=== PATIENT | male | born 1970 | race Two or more races ===

== ENCOUNTER 2024-08-16 04:53 | Inpatient (IN) | payer BC, OTHER ==
[2024-08-16] VITALS (55 sets, daily range): BP systolic 79–155; BP diastolic 46–104; PULSE 82–142; RESP 18–44; TEMP 96–98.9; O2SAT 85–100
[~2024-08-16] VITALS: Ht 175.3 cm; Wt 72.0 kg
[2024-08-16] MEDS: FUROSEMIDE 40 MG/4 ML VIAL IV ONE (05:28)
[2024-08-16] MEDS: dilTIAZem HCL 50 MG/10 ML VIAL IV ONE (05:57)
[2024-08-16] MEDS: dilTIAZem 125mg/125ml BAG KIT 125 ML IV ONE (05:58)
[2024-08-16] MEDS: dilTIAZem 25 MG/5 ML VIAL IV ONE (05:58)
[2024-08-16] MEDS: dilTIAZem 125mg/125ml BAG KIT 125 ML IV SCH (05:58)
[2024-08-16] MEDS: NOREPINEPHRINE 8 MG/250ML KIT 250 ML IV ONE (06:29)
[2024-08-16 06:35] LABS: Base Excess -11.5 mmol/L (-2.0-3.0)
[2024-08-16] MEDS: FUROSEMIDE 20 MG/2 ML VIAL IV ONE ×2 (06:59→08:19)
[2024-08-16] MEDS: SODIUM BICARB 8.4% 50Meq/50ml SYR Vial IV ONE ×2 (06:59→16:32)
[2024-08-16 07:22] LABS: Basophils # (auto) 0 10 ^3/uL (0-0.2); Basophils % (auto) 0.1 % (0.0-2.0); Eosinophils # (auto) 0 10 ^3/uL (0-0.8); Eosinophils % (auto) 0.2 % (0.0-7.0); Hematocrit 46.7 % (41.0-53.0); Hemoglobin 15.4 g/dL (13.5-17.5); Lymphocytes # (auto) 2.3 10 ^3/uL (0.4-5.4); Lymphocytes % (auto) 14.9 % (10.0-50.0); Mean Corpuscular Hemoglobin 29.9 pg (28.0-32.0); Mean Corpuscular Hgb Conc. 33.1 g/dL (32.0-36.0); Mean Corpuscular Volume 90.4 fL (80.0-100.0); Monocytes # (auto) 1.5 10 ^3/uL (0-1.3); Monocytes % (auto) 9.8 % (0.0-12.0); Neutrophils # (auto) 11.4 10 ^3/uL (1.6-8.6); Nucleated Red Blood Cells % 0.2 %; Platelet Count (auto) 121 10^3/uL (140-450); Red Blood Cells 5.17 10^6/uL (4.5-5.90); Red Cell Distribution Width 16.4 % (11.8-14.3); White Blood Cell 15.3 10^3/uL (4.4-10.8)
[2024-08-16 07:28] LABS: Urine Bacteria None Seen /hpf (None Seen)
[2024-08-16 07:28] LABS: Chloride 99 mmol/L (98-107); Sodium 128 mmol/L (136-145)
[2024-08-16 07:29] LABS: Anion Gap 12 (5-15); Calcium 8.6 mg/dL (8.7-10.4); Carbon Dioxide 17 mmol/L (20-31)
[2024-08-16 07:34] LABS: Blood Urea Nitrogen 16 mg/dL (9-23); Glucose 107 mg/dL (74-106)
[2024-08-16 07:37] LABS: Lactic Acid w/Reflex 6.9 mmol/L (0.4-2.0)
[2024-08-16 07:39] LABS: Potassium 5.6 mmol/L (3.5-5.1)
[2024-08-16 07:52] LABS: Urine Blood 2+ /uL (Negative); Urine Clarity Turbid (Clear); Urine Color Dark-Yellow (Yellow); Urine Protein, UAD 2+ (Negative); Urine Specific Gravity 1.018 (1.001-1.035); Urine Urobilinogen 2 mg/dL (Negative); Urine WBC 7 /hpf (0 - 3); Urine pH 5.5 (5.0-9.0)
[2024-08-16] MEDS: CALCIUM GLUC 1,000mg/50ml-NS 50 ML IV ONE (08:15)
[2024-08-16] MEDS: SODIUM ZIRCONIUM CYCL 10 GM PAK PO ONE ×3 (08:17→20:34)
[2024-08-16] MEDS: InsuLIN REG 1unit/0.01ml Soln (100units/ml) IV ONE (08:20)
[2024-08-16] MEDS: SODIUM BICARB 8.4% 50Meq/50ml SYR INJ IV ONE (08:21)
[2024-08-16] MEDS: DEXTROSE (50%) 50ML SYRG IV ONE (08:21)
[2024-08-16] MEDS: ALBUTEROL SULF 2.5 MG/0.5ML(0.5%) NEB SOLN NEB ONE (08:25)
[2024-08-16] MEDS: cefTRIAXone 1GM/50ML D5W 50 ML IV ONE (08:39)
[2024-08-16] MEDS: NOREPINEPHRINE 8 MG/250ML KIT 250 ML IV SCH (08:39)
[2024-08-16] MEDS: AZITHROMYCIN 500MG/ 250ML 250 ML IV ONE (09:10)
[2024-08-16] MEDS ORDERED: VANCOMYCIN PER PHARMACY 0 MG IV SCH (09:15)
[2024-08-16] MEDS ORDERED: PIPERACILLIN-TAZOB 3.375GM 100 ML IV SCH (09:15)
[2024-08-16 09:32] LABS: COVID19 ANTIGEN SOFIA FIA NEGATIVE (NEGATIVE)
[2024-08-16 09:33] LABS: Chloride 99 mmol/L (98-107); Potassium 5.5 mmol/L (3.5-5.1); Sodium 129 mmol/L (136-145)
[2024-08-16 09:33] LABS: Rapid Influenza A Negative (Negative); Rapid Influenza B Negative (Negative)
[2024-08-16 09:34] LABS: Anion Gap 16 (5-15); Calcium 8.4 mg/dL (8.7-10.4); Carbon Dioxide 14 mmol/L (20-31)
[2024-08-16 09:39] LABS: Blood Urea Nitrogen 15 mg/dL (9-23); Glucose 62 mg/dL (74-106)
[2024-08-16] MEDS ORDERED: D5W/SOD CHLO 0.9% 1,000 ML IV ONE (10:00)
[2024-08-16] MEDS: IPRATROPIUM BROM 0.5 MG/2.5ML INH SOL NEB SCH (10:05)
[2024-08-16] MEDS: ALBUTEROL SULF 2.5 MG/0.5ML(0.5%) NEB SOLN NEB SCH (10:05)
[2024-08-16] MEDS ORDERED: ALBUTEROL SULF 2.5 MG/0.5ML(0.5%) NEB SOLN NEB PRN (10:15)
[2024-08-16] MEDS ORDERED: IPRATROPIUM BROM 0.5 MG/2.5ML INH SOL NEB PRN (10:15)
[2024-08-16] MEDS: IOHEXOL 300 MG/ML 100ML BOTTLE IJ ONE (10:28)
[2024-08-16] MEDS ORDERED: NITROGLYCERIN 0.4 MG SL TAB SL PRN (10:45)
[2024-08-16] MEDS ORDERED: HYDROmorphone HCL 2 MG/ML VL/or syr IV PRN (10:45)
[2024-08-16] MEDS ORDERED: MORPHINE SULFATE INJ 2 MG/ml SYRG IV PRN (10:45)
[2024-08-16] MEDS ORDERED: DOCUSATE SOD 100 MG CAP PO PRN (10:45)
[2024-08-16] MEDS ORDERED: ONDANSETRON HCL 4 MG/2 ML VIAL IV PRN (10:45)
[2024-08-16 10:57] LABS: Partial Thromboplastin Time 41.6 SEC (24.5-34.5); Prothrombin Time 39.8 sec (9.3-11.8)
[2024-08-16 10:59] LABS: INR 4.17 (0.9-1.15)
[2024-08-16] MEDS: FUROSEMIDE 40 MG/4 ML VIAL IV SCH (11:20)
[2024-08-16 12:14] LABS: Alkaline Phosphatase 238 U/L (46-116)
[2024-08-16 12:15] LABS: Alanine Aminotransferase 233 U/L (7-40); Albumin 3.1 g/dL (3.2-4.8); Aspartate Aminotransferase 305 U/L (13-40); Bilirubin, Total 9.9 mg/dL (0.2-1.0); Total Protein 7.5 g/dL (5.7-8.2)
[2024-08-16] MEDS: LIDOCAINE 1% (LOCAL ANESTH.) PF 5ml SDV ID ONE (13:49)
[2024-08-16] MEDS: SODIUM CHLOR 0.9% PF (SALINE LOCK) 10ML VIAL/SYR IV SCH ×2 (14:00→22:10)
[2024-08-16] MEDS: BUMETANIDE INJECTION 25 MG in GIVE UN-DILUTED 0 ML IV SCH (14:26)
[2024-08-16 16:05] LABS: Base Excess -11.8 mmol/L (-2.0-3.0)
[2024-08-16] MEDS: phytonadione 10 MG in SODIUM CHL 0.9% 50 ML IV ONE (16:07)
[2024-08-16 16:19] LABS: Lactic Acid w/Reflex 10.5 mmol/L (0.4-2.0)
[2024-08-16] MEDS: DOBUTamine 1000MCG/ML 250 ML IV SCH (16:31)
[2024-08-16] MEDS: SODIUM BICARB 50mEq/50ml Vial 150 ML in D5W 5% 1,000 ML IV ONE (16:48)
[2024-08-16 16:58] LABS: Triglycerides 168 mg/dL (< 150)
[2024-08-16 16:59] LABS: LDL Cholesterol 22 mg/dL (< 100); Magnesium 1.8 mg/dL (1.6-2.6)
[2024-08-16 17:00] LABS: Cholesterol < 50.0 mg/dL (< 200); HDL Cholesterol 6 mg/dL (40-59)
[2024-08-16] MEDS: VANCOMYCIN 1.5GM/300ML 300 ML IV ONE (17:18)
[2024-08-16] MEDS: AMIODARONE BOLUS KIT 100 ML IV ONE (18:34)
[2024-08-16] MEDS: AMIODARONE 450mg/250ml AE 250 ML IV SCH (18:58)
[2024-08-16] MEDS: NOREPINEPHRINE BITARTRATE 32 MG in SODIUM CHL 0.9% 218 ML IV SCH (20:34)
[2024-08-16] MEDS: PIPERACILLIN-TAZOB 3.375GM 100 ML IV SCH (20:34)
[2024-08-16] MEDS: SODIUM ZIRCONIUM CYCL 10 GM PAK PO SCH (22:00)
[2024-08-17] VITALS (103 sets, daily range): BP systolic 84–128; BP diastolic 47–86; PULSE 95–143; RESP 14–37; TEMP 96.4–99; O2SAT 90–98
[2024-08-17] MEDS: AMIODARONE 450mg/250ml AE 250 ML IV SCH (00:24)
[2024-08-17 00:36] LABS: Prothrombin Time 50.5 sec (9.3-11.8)
[2024-08-17 00:38] LABS: INR 5.4 (0.9-1.15)
[2024-08-17 04:21] LABS: Basophils # (auto) 0 10 ^3/uL (0-0.2); Basophils % (auto) 0.1 % (0.0-2.0); Eosinophils # (auto) 0 10 ^3/uL (0-0.8); Hematocrit 40.7 % (41.0-53.0); Hemoglobin 13.8 g/dL (13.5-17.5); Lymphocytes # (auto) 2.3 10 ^3/uL (0.4-5.4); Lymphocytes % (auto) 13.1 % (10.0-50.0); Mean Corpuscular Hemoglobin 29.9 pg (28.0-32.0); Monocytes # (auto) 1.5 10 ^3/uL (0-1.3); Monocytes % (auto) 8.6 % (0.0-12.0); Neutrophils # (auto) 13.9 10 ^3/uL (1.6-8.6); Neutrophils % (auto) 78.2 % (37.0-80.0); Platelet Count (auto) 97 10^3/uL (140-450); Red Blood Cells 4.63 10^6/uL (4.5-5.90); Red Cell Distribution Width 15.9 % (11.8-14.3); White Blood Cell 17.9 10^3/uL (4.4-10.8)
[2024-08-17 04:41] LABS: Partial Thromboplastin Time 57.2 SEC (24.5-34.5); Prothrombin Time 46.5 sec (9.3-11.8)
[2024-08-17 04:45] LABS: Alanine Aminotransferase 678 U/L (7-40); Alkaline Phosphatase 185 U/L (46-116); Anion Gap 6 (5-15); Blood Urea Nitrogen 22 mg/dL (9-23); Calcium 7.2 mg/dL (8.7-10.4); Carbon Dioxide 27 mmol/L (20-31); Chloride 95 mmol/L (98-107); Glucose 150 mg/dL (74-106); Magnesium 1.6 mg/dL (1.6-2.6); Potassium 3.8 mmol/L (3.5-5.1); Sodium 128 mmol/L (136-145)
[2024-08-17 04:46] LABS: Albumin 2.5 g/dL (3.2-4.8)
[2024-08-17 04:47] LABS: INR 4.94 (0.9-1.15)
[2024-08-17 04:49] LABS: BUN/Creatinine Ratio 17.7 (10.0-20.0)
[2024-08-17 05:31] LABS: Aspartate Aminotransferase 1585 U/L (13-40)
[2024-08-17] MEDS: MAGNESIUM SULFATE 1GM/100ML 100 ML IV SCH (06:03)
[2024-08-17 08:23] LABS: Hepatitis B Surface Antibody Positive (Negative)
[2024-08-17 08:35] LABS: Hepatitis B Surface Antigen Negative (Negative)
[2024-08-17] MEDS ORDERED: PIPERACILLIN-TAZOB 3.375GM 100 ML IV SCH (10:00)
[2024-08-17] MEDS: PIPERACILLIN-TAZOB 3.375GM 100 ML IV SCH (10:20)
[2024-08-17 11:11] LABS: Free T4 (Free Thyroxine) 4.52 ng/dL (0.89-1.76)
[2024-08-17 11:12] LABS: T3 Total 1.95 ng/mL (0.60-1.81)
[2024-08-17] MEDS: MIDODRINE HCL 10 MG TAB PO SCH (12:00)
[2024-08-17 13:13] LABS: Protein, Urine 19.7 mg/dL (1-14)
[2024-08-17 13:15] LABS: Creatinine, Urine 24.28 mg/dL (30.0-125.0)
[2024-08-17] MEDS: VANCOMYCIN 1GM/200ML PREMIX 200 ML IV SCH (14:44)
[2024-08-17] MEDS: OCTREOTIDE ACETATE 100 MCG/ML VL SUBCUT SCH (15:39)
[2024-08-17] MEDS: ALBUMIN 25% 100 ML IV SCH (15:51)
[2024-08-18] VITALS (58 sets, daily range): BP systolic 93–129; BP diastolic 57–86; PULSE 92–125; RESP 13–30; TEMP 98–98.7; O2SAT 91–97
[2024-08-18 04:01] LABS: INR 3.69 (0.9-1.15); Prothrombin Time 35.5 sec (9.3-11.8)
[2024-08-18 04:05] LABS: Alanine Aminotransferase 584 U/L (7-40); Albumin 2.9 g/dL (3.2-4.8); Alkaline Phosphatase 140 U/L (46-116); Anion Gap 5 (5-15); Aspartate Aminotransferase 885 U/L (13-40); BUN/Creatinine Ratio 26.7 (10.0-20.0); Blood Urea Nitrogen 28 mg/dL (9-23); Calcium 7.2 mg/dL (8.7-10.4); Carbon Dioxide 30 mmol/L (20-31); Chloride 94 mmol/L (98-107); Magnesium 1.8 mg/dL (1.6-2.6); Potassium 3.1 mmol/L (3.5-5.1); Sodium 129 mmol/L (136-145); Total Protein 5.9 g/dL (5.7-8.2)
[2024-08-18 04:20] LABS: Glucose 120 mg/dL (74-106)
[2024-08-18 04:34] LABS: Basophils # (auto) 0 10 ^3/uL (0-0.2); Basophils % (auto) 0.4 % (0.0-2.0); Eosinophils # (auto) 0 10 ^3/uL (0-0.8); Eosinophils % (auto) 0.2 % (0.0-7.0); Hemoglobin 12.3 g/dL (13.5-17.5); Lymphocytes # (auto) 2.2 10 ^3/uL (0.4-5.4); Mean Corpuscular Hemoglobin 29.7 pg (28.0-32.0); Mean Corpuscular Hgb Conc. 34.1 g/dL (32.0-36.0); Mean Corpuscular Volume 87.1 fL (80.0-100.0); Monocytes # (auto) 1.1 10 ^3/uL (0-1.3); Monocytes % (auto) 10.1 % (0.0-12.0); Neutrophils # (auto) 7.4 10 ^3/uL (1.6-8.6); Neutrophils % (auto) 69.3 % (37.0-80.0); Nucleated Red Blood Cells % 0.2 %; Platelet Count (auto) 70 10^3/uL (140-450); Red Blood Cells 4.14 10^6/uL (4.5-5.90); Red Cell Distribution Width 15.7 % (11.8-14.3); White Blood Cell 10.7 10^3/uL (4.4-10.8)
[2024-08-18] MEDS: POTASSIUM CHL 20 Meq TABLET PO ONE (06:01)
[2024-08-18] MEDS: METOPROLOL TARTRATE 25 MG TAB PO SCH (10:33)
[2024-08-18] MEDS: CHOLECALCIFEROL (VITD3) 1,000UNIT=25mCg TAB PO SCH (10:34)
[2024-08-18 13:59] LABS: Potassium 3.6 mmol/L (3.5-5.1)
[2024-08-18 14:06] LABS: Magnesium 1.7 mg/dL (1.6-2.6)
[2024-08-18] MEDS: CEFEPIME 1GM/ 50ML 50 ML IV SCH (14:47)
[2024-08-18] MEDS: MAGNESIUM SULFATE 1GM/100ML 100 ML IV SCH (18:51)
[2024-08-18] MEDS: POTASSIUM CHL 20MEQ/100ML 100 ML IV SCH (18:51)
[2024-08-18] MEDS: SPIRONOLACTONE 25 MG TAB PO SCH (18:55)
[2024-08-19] VITALS (85 sets, daily range): BP systolic 86–142; BP diastolic 49–91; PULSE 18–126; RESP 14–87; TEMP 97–97.9; O2SAT 90–98
[2024-08-19 04:01] LABS: Basophils # (auto) 0.1 10 ^3/uL (0-0.2); Basophils % (auto) 0.4 % (0.0-2.0); Eosinophils # (auto) 0 10 ^3/uL (0-0.8); Eosinophils % (auto) 0.1 % (0.0-7.0); Hematocrit 39.8 % (41.0-53.0); Hemoglobin 13.7 g/dL (13.5-17.5); Lymphocytes # (auto) 2.2 10 ^3/uL (0.4-5.4); Lymphocytes % (auto) 17.9 % (10.0-50.0); Mean Corpuscular Hemoglobin 30.1 pg (28.0-32.0); Mean Corpuscular Hgb Conc. 34.4 g/dL (32.0-36.0); Mean Corpuscular Volume 87.7 fL (80.0-100.0); Monocytes # (auto) 1.2 10 ^3/uL (0-1.3); Monocytes % (auto) 9.8 % (0.0-12.0); Neutrophils # (auto) 8.8 10 ^3/uL (1.6-8.6); Neutrophils % (auto) 71.8 % (37.0-80.0); Nucleated Red Blood Cells % 0.1 %; Platelet Count (auto) 75 10^3/uL (140-450); Red Blood Cells 4.54 10^6/uL (4.5-5.90); Red Cell Distribution Width 16.1 % (11.8-14.3); White Blood Cell 12.3 10^3/uL (4.4-10.8)
[2024-08-19 04:16] LABS: Alanine Aminotransferase 461 U/L (7-40); Alkaline Phosphatase 141 U/L (46-116); Anion Gap 5 (5-15); Aspartate Aminotransferase 448 U/L (13-40); Blood Urea Nitrogen 28 mg/dL (9-23); Calcium 7.6 mg/dL (8.7-10.4); Carbon Dioxide 30 mmol/L (20-31); Chloride 92 mmol/L (98-107); Glucose 171 mg/dL (74-106); Magnesium 1.8 mg/dL (1.6-2.6); Potassium 3.3 mmol/L (3.5-5.1); Sodium 127 mmol/L (136-145)
[2024-08-19 04:17] LABS: Bilirubin, Total 11.7 mg/dL (0.2-1.0)
[2024-08-19 04:18] LABS: BUN/Creatinine Ratio 28.9 (10.0-20.0)
[2024-08-19] MEDS: POTASSIUM CHL 20MEQ/100ML 100 ML IV ONE (05:12)
[2024-08-19] MEDS ORDERED: diazePAM 2 MG TAB PO PRN (07:45)
[2024-08-19] MEDS: PANTOPRAZOLE 40 MG TAB PO SCH (10:10)
[2024-08-19] MEDS: DIGOXIN (250MCG/ML) 2 ML AMPULE IV SCH (10:11)
[2024-08-19] MEDS ORDERED: LORazepam 2MG/ML-1ML VIAL IV PRN (10:15)
[2024-08-19 10:32] LABS: INR 3.9 (0.9-1.15); Partial Thromboplastin Time 55.2 SEC (24.5-34.5); Prothrombin Time 37.4 sec (9.3-11.8)
[2024-08-19] MEDS: SPIRONOLACTONE 25 MG TAB PO SCH (17:03)
[2024-08-20] VITALS (99 sets, daily range): BP systolic 102–137; BP diastolic 44–89; PULSE 74–125; RESP 12–30; TEMP 97.5–98.3; O2SAT 87–100
[2024-08-20 03:39] LABS: Basophils # (auto) 0 10 ^3/uL (0-0.2); Basophils % (auto) 0.2 % (0.0-2.0); Eosinophils # (auto) 0.1 10 ^3/uL (0-0.8); Neutrophils # (auto) 5.9 10 ^3/uL (1.6-8.6)
[2024-08-20 03:43] LABS: Eosinophils % (auto) 1.2 % (0.0-7.0); Hematocrit 40.1 % (41.0-53.0); Lymphocytes % (auto) 21.6 % (10.0-50.0); Mean Corpuscular Hemoglobin 30.2 pg (28.0-32.0); Mean Corpuscular Hgb Conc. 34.9 g/dL (32.0-36.0); Mean Corpuscular Volume 86.4 fL (80.0-100.0); Monocytes # (auto) 1.4 10 ^3/uL (0-1.3); Monocytes % (auto) 14.5 % (0.0-12.0); Neutrophils % (auto) 62.5 % (37.0-80.0); Nucleated Red Blood Cells % 0.2 %; Platelet Count (auto) 59 10^3/uL (140-450); Red Blood Cells 4.64 10^6/uL (4.5-5.90); Red Cell Distribution Width 15.6 % (11.8-14.3); White Blood Cell 9.4 10^3/uL (4.4-10.8)
[2024-08-20 03:58] LABS: Alanine Aminotransferase 354 U/L (7-40); Albumin 2.9 g/dL (3.2-4.8); Alkaline Phosphatase 138 U/L (46-116); Anion Gap 1 (5-15); Aspartate Aminotransferase 258 U/L (13-40); Blood Urea Nitrogen 26 mg/dL (9-23); Calcium 7.8 mg/dL (8.7-10.4); Carbon Dioxide 39 mmol/L (20-31); Chloride 92 mmol/L (98-107); Glucose 98 mg/dL (74-106); Magnesium 1.5 mg/dL (1.6-2.6); Potassium 2.9 mmol/L (3.5-5.1)
[2024-08-20 03:59] LABS: Bilirubin, Total 16.9 mg/dL (0.2-1.0); Total Protein 6.3 g/dL (5.7-8.2)
[2024-08-20 04:06] LABS: BUN/Creatinine Ratio 33.8 (10.0-20.0)
[2024-08-20 04:12] LABS: Sodium 132 mmol/L (136-145)
[2024-08-20] MEDS: MAGNESIUM SULFATE 1GM/100ML 100 ML IV SCH ×2 (06:12→09:00)
[2024-08-20] MEDS: POTASSIUM CHL 20 Meq TABLET PO ONE (06:13)
[2024-08-20] MEDS: EMPAGLIFLOZIN 10 MG TAB PO SCH (09:41)
[2024-08-20 10:23] LABS: INR 3.12 (0.9-1.15); Partial Thromboplastin Time 52.7 SEC (24.5-34.5); Prothrombin Time 30.4 sec (9.3-11.8)
[2024-08-20] MEDS: AMIODARONE HCL 200 MG TAB PO ONE (10:26)
[2024-08-20] MEDS: AMIODARONE HCL 200 MG TAB PO SCH (10:30)
[2024-08-20] MEDS: POTASSIUM CHL 20MEQ/100ML 100 ML IV SCH (10:44)
[2024-08-20] MEDS: PATIENTS OWN MEDICATION PO ONE (11:15)
[2024-08-20 11:19] LABS: Folate (Folic Acid) 11.88 ng/mL (>5.38)
[2024-08-20 11:20] LABS: Ferritin 96.8 ng/mL (22-322)
[2024-08-20] MEDS: methIMAzole 5 MG TAB PO SCH (12:47)
[2024-08-20 14:19] LABS: % Iron Saturation 34.5 % (20-55)
[2024-08-20] MEDS: BUMETANIDE INJECTION 25 MG in GIVE UN-DILUTED 0 ML IV SCH (17:00)
[2024-08-20 18:30] LABS: Potassium 3.4 mmol/L (3.5-5.1)
[2024-08-20 18:37] LABS: Magnesium 1.4 mg/dL (1.6-2.6)
[2024-08-20] MEDS: PATIENTS OWN MEDICATION PO SCH (21:16)
[2024-08-20] MEDS ORDERED: AMIODARONE HCL 200 MG TAB PO SCH (22:00)
[2024-08-21] VITALS (88 sets, daily range): BP systolic 99–135; BP diastolic 46–84; PULSE 88–140; RESP 12–22; TEMP 97.8–98.3; O2SAT 93–100
[2024-08-21] MEDS: MAGNESIUM SULFATE 1GM/100ML 100 ML IV SCH ×2 (03:04→10:16)
[2024-08-21 04:39] LABS: Basophils # (auto) 0 10 ^3/uL (0-0.2); Basophils % (auto) 0.1 % (0.0-2.0); Eosinophils # (auto) 0.2 10 ^3/uL (0-0.8); Hemoglobin 12.6 g/dL (13.5-17.5); Monocytes # (auto) 1.3 10 ^3/uL (0-1.3); Platelet Count (auto) 56 10^3/uL (140-450)
[2024-08-21 04:42] LABS: Eosinophils % (auto) 2.5 % (0.0-7.0); Hematocrit 35.9 % (41.0-53.0); Lymphocytes # (auto) 1.7 10 ^3/uL (0.4-5.4); Lymphocytes % (auto) 20.2 % (10.0-50.0); Mean Corpuscular Hemoglobin 30.5 pg (28.0-32.0); Mean Corpuscular Hgb Conc. 35.1 g/dL (32.0-36.0); Mean Corpuscular Volume 86.8 fL (80.0-100.0); Monocytes % (auto) 14.9 % (0.0-12.0); Neutrophils # (auto) 5.4 10 ^3/uL (1.6-8.6); Neutrophils % (auto) 62.3 % (37.0-80.0); Nucleated Red Blood Cells % 0.2 %; Red Blood Cells 4.13 10^6/uL (4.5-5.90); White Blood Cell 8.7 10^3/uL (4.4-10.8)
[2024-08-21 04:46] LABS: Alanine Aminotransferase 205 U/L (7-40); Alkaline Phosphatase 115 U/L (46-116); Anion Gap 5 (5-15); Blood Urea Nitrogen 15 mg/dL (9-23); Calcium 6.2 mg/dL (8.7-10.4); Carbon Dioxide 32 mmol/L (20-31); Chloride 98 mmol/L (98-107); Glucose 167 mg/dL (74-106); Magnesium 1.1 mg/dL (1.6-2.6); Potassium 2.7 mmol/L (3.5-5.1); Sodium 135 mmol/L (136-145)
[2024-08-21 04:47] LABS: Albumin 2.4 g/dL (3.2-4.8); Aspartate Aminotransferase 102 U/L (13-40)
[2024-08-21 04:48] LABS: Bilirubin, Total 16.2 mg/dL (0.2-1.0); Total Protein 5.3 g/dL (5.7-8.2)
[2024-08-21] MEDS: POTASSIUM CHL 20MEQ/100ML 100 ML IV SCH ×2 (05:51→10:16)
[2024-08-21] MEDS: POTASSIUM CHL 20 Meq TABLET PO SCH (10:15)
[2024-08-21] MEDS: MAGNESIUM OXIDE 400 MG TAB PO SCH (10:15)
[2024-08-21 13:00] LABS: Potassium 3.9 mmol/L (3.5-5.1)
[2024-08-21 13:06] LABS: Magnesium 2.2 mg/dL (1.6-2.6)
[2024-08-21] MEDS: URSODIOL 300 MG CAP PO SCH (13:31)
[2024-08-21] MEDS: BUMETANIDE 2.5mg/10ml (0.25 mg/ml) INJ IV SCH (17:49)
[2024-08-22] VITALS (26 sets, daily range): BP systolic 107–142; BP diastolic 57–85; PULSE 94–146; RESP 13–31; TEMP 98.1–98.5; O2SAT 98–100
[2024-08-22 06:23] LABS: Anion Gap 2 (5-15); Carbon Dioxide 35 mmol/L (20-31); Chloride 93 mmol/L (98-107); Potassium 3.8 mmol/L (3.5-5.1)
[2024-08-22 06:24] LABS: Calcium 8.6 mg/dL (8.7-10.4)
[2024-08-22 06:29] LABS: Glucose 99 mg/dL (74-106)
[2024-08-22 06:33] LABS: BUN/Creatinine Ratio 18.9 (10.0-20.0); Blood Urea Nitrogen 14 mg/dL (9-23)
[2024-08-22 06:42] LABS: Sodium 130 mmol/L (136-145)
[2024-08-22 09:19] LABS: Albumin 3.1 g/dL (3.2-4.8); Bilirubin, Direct 13.3 mg/dL (<0.3); Bilirubin, Total 20.7 mg/dL (0.2-1.0)
[2024-08-22 09:23] LABS: Basophils # (auto) 0 10 ^3/uL (0-0.2); Basophils % (auto) 0.2 % (0.0-2.0); Eosinophils # (auto) 0.6 10 ^3/uL (0-0.8); Hematocrit 43.8 % (41.0-53.0); Hemoglobin 14.5 g/dL (13.5-17.5); Lymphocytes # (auto) 2.7 10 ^3/uL (0.4-5.4); Lymphocytes % (auto) 18.7 % (10.0-50.0); Mean Corpuscular Hemoglobin 29.1 pg (28.0-32.0); Mean Corpuscular Hgb Conc. 33.2 g/dL (32.0-36.0); Mean Corpuscular Volume 87.6 fL (80.0-100.0); Monocytes # (auto) 1.8 10 ^3/uL (0-1.3); Neutrophils # (auto) 9.2 10 ^3/uL (1.6-8.6); Neutrophils % (auto) 64.1 % (37.0-80.0); Nucleated Red Blood Cells % 0.1 %; Platelet Count (auto) 79 10^3/uL (140-450); Red Blood Cells 4.99 10^6/uL (4.5-5.90); Red Cell Distribution Width 15.8 % (11.8-14.3); White Blood Cell 14.3 10^3/uL (4.4-10.8)
[2024-08-22 10:48] LABS: Total Protein 7.1 g/dL (5.7-8.2)
[2024-08-22 12:53] LABS: INR 2.16 (0.9-1.15); Partial Thromboplastin Time 45.4 SEC (24.5-34.5); Prothrombin Time 21.6 sec (9.3-11.8)
[2024-08-22] MEDS ORDERED: diphenhdrAMINE HCL 50 MG/1 ML VL IV ONE (17:15)
[2024-08-22] MEDS ORDERED: LORazepam 0.5 MG TAB PO ONE (17:15)
[2024-08-22] MEDS: LACTULOSE 20Gm/30ML SOLN PO ONE (17:40)
[2024-08-23] VITALS (38 sets, daily range): BP systolic 89–136; BP diastolic 49–98; PULSE 63–140; RESP 10–25; TEMP 97.5–98.1; O2SAT 84–100
[2024-08-23 04:59] LABS: Basophils # (auto) 0 10 ^3/uL (0-0.2); Basophils % (auto) 0.2 % (0.0-2.0); Eosinophils # (auto) 0.6 10 ^3/uL (0-0.8); Eosinophils % (auto) 4.6 % (0.0-7.0); Hematocrit 41.7 % (41.0-53.0); Hemoglobin 14.1 g/dL (13.5-17.5); Lymphocytes # (auto) 2.3 10 ^3/uL (0.4-5.4); Lymphocytes % (auto) 18.5 % (10.0-50.0); Mean Corpuscular Hemoglobin 29.3 pg (28.0-32.0); Mean Corpuscular Hgb Conc. 33.7 g/dL (32.0-36.0); Monocytes # (auto) 1.4 10 ^3/uL (0-1.3); Monocytes % (auto) 11.2 % (0.0-12.0); Neutrophils # (auto) 8.1 10 ^3/uL (1.6-8.6); Neutrophils % (auto) 65.5 % (37.0-80.0); Nucleated Red Blood Cells % 0.2 %; Platelet Count (auto) 70 10^3/uL (140-450); Red Cell Distribution Width 16.2 % (11.8-14.3); White Blood Cell 12.4 10^3/uL (4.4-10.8)
[2024-08-23 05:07] LABS: Anion Gap 4 (5-15); Carbon Dioxide 32 mmol/L (20-31); Chloride 94 mmol/L (98-107); Potassium 4.2 mmol/L (3.5-5.1); Sodium 130 mmol/L (136-145)
[2024-08-23 05:08] LABS: Calcium 8.8 mg/dL (8.7-10.4)
[2024-08-23 05:13] LABS: Glucose 90 mg/dL (74-106)
[2024-08-23 05:19] LABS: BUN/Creatinine Ratio 24.2 (10.0-20.0); Blood Urea Nitrogen 15 mg/dL (9-23)
[2024-08-23] MEDS: LACTULOSE 20Gm/30ML SOLN PO SCH ×2 (08:51→22:19)
[2024-08-23] MEDS: AMIODARONE 450mg/250ml AE 250 ML IV SCH (13:00)
[2024-08-23] MEDS ORDERED: TEMAZEPAM 15 MG CAP PO PRN (13:45)
[2024-08-23] MEDS: METOPROLOL TARTRATE 25 MG TAB PO ONE (14:35)
[2024-08-23 15:53] LABS: Alkaline Phosphatase 162 U/L (46-116); Chloride 96 mmol/L (98-107); Potassium 4.9 mmol/L (3.5-5.1); Sodium 132 mmol/L (136-145)
[2024-08-23 15:56] LABS: Alanine Aminotransferase 112 U/L (7-40); Albumin 3.1 g/dL (3.2-4.8); Anion Gap 6 (5-15); Aspartate Aminotransferase 52 U/L (13-40); BUN/Creatinine Ratio 25.8 (10.0-20.0); Blood Urea Nitrogen 17 mg/dL (9-23); Carbon Dioxide 30 mmol/L (20-31); Glucose 108 mg/dL (74-106); Total Protein 7.7 g/dL (5.7-8.2)
[2024-08-23] MEDS: AMIODARONE HCL 200 MG TAB PO SCH (22:20)
[2024-08-23] MEDS: METOPROLOL TARTRATE 50 MG TAB PO SCH (22:20)
[2024-08-24] VITALS (22 sets, daily range): BP systolic 99–126; BP diastolic 50–82; PULSE 57–102; RESP 12–26; TEMP 97.5–98.2; O2SAT 95–100
[2024-08-24 05:22] LABS: Basophils # (auto) 0 10 ^3/uL (0-0.2); Basophils % (auto) 0.3 % (0.0-2.0); Eosinophils # (auto) 0.8 10 ^3/uL (0-0.8); Eosinophils % (auto) 6.1 % (0.0-7.0); Hematocrit 41.2 % (41.0-53.0); Lymphocytes % (auto) 15.7 % (10.0-50.0); Mean Corpuscular Hemoglobin 29.6 pg (28.0-32.0); Mean Corpuscular Hgb Conc. 34.1 g/dL (32.0-36.0); Mean Corpuscular Volume 86.8 fL (80.0-100.0); Monocytes # (auto) 1.2 10 ^3/uL (0-1.3); Neutrophils # (auto) 8.5 10 ^3/uL (1.6-8.6); Neutrophils % (auto) 67.9 % (37.0-80.0); Nucleated Red Blood Cells % 0.1 %; Platelet Count (auto) 73 10^3/uL (140-450); Red Blood Cells 4.74 10^6/uL (4.5-5.90); Red Cell Distribution Width 16.5 % (11.8-14.3); White Blood Cell 12.5 10^3/uL (4.4-10.8)
[2024-08-24 05:28] LABS: Alkaline Phosphatase 141 U/L (46-116); Calcium 8.8 mg/dL (8.7-10.4); Chloride 97 mmol/L (98-107); Potassium 5.5 mmol/L (3.5-5.1); Sodium 130 mmol/L (136-145)
[2024-08-24 05:29] LABS: Bilirubin, Total 29.3 mg/dL (0.2-1.0)
[2024-08-24 05:34] LABS: Alanine Aminotransferase 86 U/L (7-40); Albumin 2.9 g/dL (3.2-4.8); Anion Gap 2 (5-15); Aspartate Aminotransferase 43 U/L (13-40); BUN/Creatinine Ratio 27.7 (10.0-20.0); Blood Urea Nitrogen 23 mg/dL (9-23); Carbon Dioxide 31 mmol/L (20-31); Glucose 94 mg/dL (74-106); Magnesium 1.6 mg/dL (1.6-2.6); Total Protein 6.9 g/dL (5.7-8.2)
[2024-08-24] MEDS: MAGNESIUM SULFATE 1GM/100ML 100 ML IV SCH (07:40)
[2024-08-24] MEDS: SODIUM ZIRCONIUM CYCL 10 GM PAK PO ONE (07:41)
[2024-08-24 08:49] LABS: INR 1.8 (0.9-1.15); Partial Thromboplastin Time 39.3 SEC (24.5-34.5); Prothrombin Time 18.3 sec (9.3-11.8)
[2024-08-24] MEDS: FUROSEMIDE 40 MG/4 ML VIAL IV SCH (10:16)
[2024-08-24] MEDS: FERROUS SULFATE 325mg EC TAB PO SCH (10:18)
[2024-08-25] VITALS (7 sets, daily range): BP systolic 112–124; BP diastolic 64–86; PULSE 60–102; RESP 16–20; TEMP 97.5–98.5; O2SAT 96–100
[2024-08-25 06:07] LABS: Basophils # (auto) 0 10 ^3/uL (0-0.2); Basophils % (auto) 0.2 % (0.0-2.0); Eosinophils # (auto) 0.6 10 ^3/uL (0-0.8); Eosinophils % (auto) 5.5 % (0.0-7.0); Hematocrit 42.4 % (41.0-53.0); Hemoglobin 14.5 g/dL (13.5-17.5); Lymphocytes # (auto) 2.6 10 ^3/uL (0.4-5.4); Lymphocytes % (auto) 23.3 % (10.0-50.0); Mean Corpuscular Hemoglobin 29.5 pg (28.0-32.0); Mean Corpuscular Hgb Conc. 34.1 g/dL (32.0-36.0); Mean Corpuscular Volume 86.4 fL (80.0-100.0); Monocytes # (auto) 1.6 10 ^3/uL (0-1.3); Monocytes % (auto) 13.9 % (0.0-12.0); Neutrophils # (auto) 6.5 10 ^3/uL (1.6-8.6); Neutrophils % (auto) 57.1 % (37.0-80.0); Nucleated Red Blood Cells % 0.1 %; Platelet Count (auto) 74 10^3/uL (140-450); White Blood Cell 11.4 10^3/uL (4.4-10.8)
[2024-08-25 06:13] LABS: Chloride 96 mmol/L (98-107); Potassium 4.3 mmol/L (3.5-5.1); Sodium 131 mmol/L (136-145)
[2024-08-25 06:14] LABS: Calcium 9.2 mg/dL (8.7-10.4)
[2024-08-25 06:19] LABS: Anion Gap 5 (5-15); BUN/Creatinine Ratio 24.7 (10.0-20.0); Blood Urea Nitrogen 21 mg/dL (9-23); Carbon Dioxide 30 mmol/L (20-31); Glucose 115 mg/dL (74-106)
[2024-08-25] MEDS: METOPROLOL SUCCINATE XL 50 MG TAB PO SCH (09:43)
[2024-08-25 10:07] LABS: Free Thyroxine Index 6.3 (1.2-4.9); Thyroxine (T4) 12.1 ug/dL (4.5-12.0)
[2024-08-25 10:20] LABS: Alkaline Phosphatase 141 U/L (46-116); Calcium 9.1 mg/dL (8.7-10.4); Chloride 96 mmol/L (98-107); Potassium 4.4 mmol/L (3.5-5.1); Sodium 130 mmol/L (136-145)
[2024-08-25 10:22] LABS: Bilirubin, Total 27.6 mg/dL (0.2-1.0)
[2024-08-25 11:07] LABS: Alanine Aminotransferase 63 U/L (7-40); Albumin 2.8 g/dL (3.2-4.8); Anion Gap 6 (5-15); Aspartate Aminotransferase 42 U/L (13-40); BUN/Creatinine Ratio 30.3 (10.0-20.0); Blood Urea Nitrogen 23 mg/dL (9-23); Carbon Dioxide 28 mmol/L (20-31); Total Protein 7.2 g/dL (5.7-8.2)
[2024-08-25 11:08] LABS: Glucose 227 mg/dL (74-106)
[2024-08-25 12:00] LABS: Free T3 5.56 pg/mL (2.3-4.2); Free T4 (Free Thyroxine) 3.78 ng/dL (0.89-1.76)
[2024-08-25 12:30] LABS: INR 1.69 (0.9-1.15); Prothrombin Time 17.2 sec (9.3-11.8)
[2024-08-25] MEDS: methIMAzole 5 MG TAB PO SCH (21:38)
[2024-08-26] VITALS (8 sets, daily range): BP systolic 105–135; BP diastolic 69–81; PULSE 82–126; RESP 16–20; TEMP 97.6–98.2; O2SAT 93–100
[2024-08-26 06:21] LABS: Basophils # (auto) 0 10 ^3/uL (0-0.2); Basophils % (auto) 0.2 % (0.0-2.0); Eosinophils # (auto) 0.4 10 ^3/uL (0-0.8); Eosinophils % (auto) 3.1 % (0.0-7.0); Hematocrit 43.2 % (41.0-53.0); Hemoglobin 14.4 g/dL (13.5-17.5); Lymphocytes # (auto) 2.5 10 ^3/uL (0.4-5.4); Lymphocytes % (auto) 18.9 % (10.0-50.0); Mean Corpuscular Hgb Conc. 33.3 g/dL (32.0-36.0); Mean Corpuscular Volume 87.1 fL (80.0-100.0); Monocytes # (auto) 1.5 10 ^3/uL (0-1.3); Monocytes % (auto) 11.7 % (0.0-12.0); Neutrophils # (auto) 8.7 10 ^3/uL (1.6-8.6); Neutrophils % (auto) 66.1 % (37.0-80.0); Nucleated Red Blood Cells % 0.3 %; Platelet Count (auto) 74 10^3/uL (140-450); Red Blood Cells 4.96 10^6/uL (4.5-5.90); Red Cell Distribution Width 17.2 % (11.8-14.3); White Blood Cell 13.1 10^3/uL (4.4-10.8)
[2024-08-26 06:37] LABS: INR 1.58 (0.9-1.15); Partial Thromboplastin Time 34.5 SEC (24.5-34.5); Prothrombin Time 16.2 sec (9.3-11.8)
[2024-08-26 06:41] LABS: Alkaline Phosphatase 147 U/L (46-116); Calcium 9.3 mg/dL (8.7-10.4); Chloride 97 mmol/L (98-107); Potassium 4.6 mmol/L (3.5-5.1); Sodium 130 mmol/L (136-145)
[2024-08-26 06:42] LABS: Bilirubin, Total 27.8 mg/dL (0.2-1.0)
[2024-08-26 06:49] LABS: Alanine Aminotransferase 58 U/L (7-40); Albumin 2.9 g/dL (3.2-4.8); Anion Gap 8 (5-15); Aspartate Aminotransferase 42 U/L (13-40); BUN/Creatinine Ratio 26.3 (10.0-20.0); Blood Urea Nitrogen 20 mg/dL (9-23); Carbon Dioxide 25 mmol/L (20-31); Cholesterol 67 mg/dL (< 200); HDL Cholesterol < 5 mg/dL (40-59); LDL Cholesterol 11 mg/dL (< 100); Total Protein 7.5 g/dL (5.7-8.2); Triglycerides 138 mg/dL (< 150)
[2024-08-26 06:50] LABS: Glucose 99 mg/dL (74-106)
[2024-08-26] MEDS: DIGOXIN 0.125 MG TAB PO SCH (13:14)
[2024-08-26 19:06] LABS: Thyroid Stimulating Immunoglob 25.2 IU/L (0.00-0.55)
[2024-08-26] MEDS: SACUBITRIL-VALSARTAN 24mg/26mg TAB PO SCH (22:40)
[2024-08-27] VITALS (8 sets, daily range): BP systolic 79–110; BP diastolic 44–77; PULSE 69–109; RESP 16–18; TEMP 96.7–97.9; O2SAT 96–98
[2024-08-27 06:19] LABS: Basophils # (auto) 0 10 ^3/uL (0-0.2); Basophils % (auto) 0.1 % (0.0-2.0); Eosinophils # (auto) 0.4 10 ^3/uL (0-0.8); Eosinophils % (auto) 3.1 % (0.0-7.0); Hematocrit 42.3 % (41.0-53.0); Hemoglobin 14.2 g/dL (13.5-17.5); Lymphocytes # (auto) 2.3 10 ^3/uL (0.4-5.4); Lymphocytes % (auto) 17.7 % (10.0-50.0); Mean Corpuscular Hemoglobin 29.1 pg (28.0-32.0); Mean Corpuscular Hgb Conc. 33.7 g/dL (32.0-36.0); Mean Corpuscular Volume 86.3 fL (80.0-100.0); Monocytes # (auto) 1.6 10 ^3/uL (0-1.3); Monocytes % (auto) 12.6 % (0.0-12.0); Neutrophils # (auto) 8.6 10 ^3/uL (1.6-8.6); Neutrophils % (auto) 66.5 % (37.0-80.0); Nucleated Red Blood Cells % 0.2 %; Platelet Count (auto) 83 10^3/uL (140-450); Red Cell Distribution Width 16.8 % (11.8-14.3)
[2024-08-27 06:31] LABS: INR 1.64 (0.9-1.15); Partial Thromboplastin Time 35.9 SEC (24.5-34.5); Prothrombin Time 16.8 sec (9.3-11.8)
[2024-08-27 06:45] LABS: Alkaline Phosphatase 145 U/L (46-116); Calcium 8.9 mg/dL (8.7-10.4); Chloride 95 mmol/L (98-107); Potassium 4.4 mmol/L (3.5-5.1); Sodium 129 mmol/L (136-145)
[2024-08-27 06:46] LABS: Bilirubin, Total 27.3 mg/dL (0.2-1.0)
[2024-08-27 06:49] LABS: Alanine Aminotransferase 50 U/L (7-40); Albumin 2.9 g/dL (3.2-4.8); Anion Gap 8 (5-15); Aspartate Aminotransferase 39 U/L (13-40); BUN/Creatinine Ratio 30.5 (10.0-20.0); Blood Urea Nitrogen 29 mg/dL (9-23); Carbon Dioxide 26 mmol/L (20-31); Glucose 110 mg/dL (74-106); Magnesium 1.9 mg/dL (1.6-2.6); Total Protein 7.4 g/dL (5.7-8.2)
[2024-08-27] MEDS: predniSONE 20 MG TAB PO SCH (10:00)
[2024-08-27] MEDS ORDERED: SACU1TAB PO (15:30)
[2024-08-27] MEDS ORDERED: EMPA1TAB PO (15:30)
[2024-08-27] MEDS ORDERED: METH-552 PO (15:30)
[2024-08-27] MEDS ORDERED: AMIO200T13 PO (15:30)
[2024-08-27] MEDS ORDERED: METO25TA36 PO (15:30)
[2024-08-27] MEDS ORDERED: SPIR25TA PO (15:30)
[2024-08-27] MEDS ORDERED: PRED20TA2 PO (15:30)
[2024-08-27] MEDS ORDERED: DIGO1TAB48 PO (15:30)
== END 2024-08-27 20:30 | disposition home or self-care (01) | DRG 871 ==
LOC: EDBD 04:53 → ER 04:53 → TELE 10:06 → ICU WEST 12:59 → DOU IN ICU 08-22 03:00 → TELE-EAST 08-24 17:36
PROVIDERS: ADMIT Internal Medicine; ATTEND Internal Medicine Geriatric Medicine
PROC: 5A09357 Assistance with Respiratory Ventilation, Less than 24 Consecutive Hours, Continuous Positive Airway Pressure (ICD-10-PCS; principal; 2024-08-16)
PROC: 02HV33Z Insertion of Infusion Device into Superior Vena Cava, Percutaneous Approach (ICD-10-PCS; 2024-08-16)
PROC: B548ZZA Ultrasonography of Superior Vena Cava, Guidance (ICD-10-PCS; 2024-08-16)
DX: A41.9 Sepsis, unspecified organism (principal); G93.41 Metabolic encephalopathy; R65.21 Severe sepsis with septic shock; I50.23 Acute on chronic systolic (congestive) heart failure; J96.01 Acute respiratory failure with hypoxia; R57.0 Cardiogenic shock; K72.00 Acute and subacute hepatic failure without coma; J18.9 Pneumonia, unspecified organism; I21.4 Non-ST elevation (NSTEMI) myocardial infarction; E87.1 Hypo-osmolality and hyponatremia; E87.20 Acidosis, unspecified; J98.11 Atelectasis; R18.8 Other ascites; I42.9 Cardiomyopathy, unspecified; N17.9 Acute kidney failure, unspecified; I13.0 Hypertensive heart and chronic kidney disease with heart failure and stage 1 through stage 4 chronic kidney disease, or unspecified chronic kidney disease; I48.19 Other persistent atrial fibrillation; D68.9 Coagulation defect, unspecified; Z20.822 Contact with and (suspected) exposure to COVID-19; E87.5 Hyperkalemia; J45.909 Unspecified asthma, uncomplicated; K59.00 Constipation, unspecified; K80.20 Calculus of gallbladder without cholecystitis without obstruction; D69.59 Other secondary thrombocytopenia; E05.90 Thyrotoxicosis, unspecified without thyrotoxic crisis or storm; I08.1 Rheumatic disorders of both mitral and tricuspid valves; R73.03 Prediabetes; N18.9 Chronic kidney disease, unspecified; K74.60 Unspecified cirrhosis of liver; E88.09 Other disorders of plasma-protein metabolism, not elsewhere classified; I25.10 Atherosclerotic heart disease of native coronary artery without angina pectoris; Z79.01 Long term (current) use of anticoagulants; Z63.4 Disappearance and death of family member; Z82.3 Family history of stroke; Z82.49 Family history of ischemic heart disease and other diseases of the circulatory system; Z83.3 Family history of diabetes mellitus
CPT/HCPCS: 36415; 36569; 36600; 70450; 70551; 71045; 71260; 74177; 74181; 76536; 76705; 76775; 80048; 80053; 80061; 80076; 80162; 80202; 81001; 82105; 82140; 82247; 82306; 82570; 82607; 82728; 82746; 82805; 82962; 83010; 83036; 83540; 83550; 83605; 83615; 83735; 83880; 83970; 84100; 84132; 84156; 84300; 84439; 84443; 84445; 84480; 84481; 84484; 85025; 85379; 85384; 85610; 85730; 86038; 86301; 86703; 86706; 86803; 87040; 87081; 87086; 87340; 87426; 87804; 93306; 93970; 94640; 94660; 97116; 97163; 97530; 99291; G0378; J1815; J2543; J3430; J3480; P9047